=== PATIENT | male | born 1975 | race Caucasian/White ===

== ENCOUNTER → 2024-03-01 12:35 | Outpatient (REF) | payer BC, SELFPAY | LOC: HWRAD 12:35 | PROVIDERS: ATTENDING PHYSICIAN Family Medicine | DX: D18.03 Hemangioma of intra-abdominal structures (principal) | CPT/HCPCS: 76700 ==

== ENCOUNTER → 2024-04-01 13:47 | Outpatient (REF) | payer BC, SELFPAY ==
[2024-04-01 08:40] LABS: % Basophils 0.3 % (0-2); % Eosinophils 1.8 % (0-6); % Neutrophils 69.9 % (42.2-75.2); Absolute Eosinophils 0.1 10^3/uL (0-0.7); Absolute Lymphocytes 0.8 10^3/uL (1.2-3.4); Absolute Monocytes 0.3 10^3/uL (0.1-0.6); Absolute Neutrophils 2.8 10^3/uL (1.4-6.5); Hematocrit 46.2 % (39.0-52.0); Hemoglobin 15.1 g/dL (13.0-18.0); Mean Corp Hgb Conc. 32.7 g/dL (33.0-37.0); Mean Corpuscular Hgb 30.3 pg (27.0-31.0); Mean Corpuscular Volume 92.8 fL (80.0-94.0); Mean Platelet Volume 11.2 fL (7.4-10.4); Platelet Count 194 10^3/uL (130-400); Red Blood Cell Count 4.98 10^6/uL (4.70-6.10); Red Cell Dist. Width 12.7 % (11.5-14.5)
== END ==
LOC: OIDL 13:47
PROVIDERS: ATTENDING PHYSICIAN Nurse Practitioner Acute Care
DX: E83.110 Hereditary hemochromatosis (principal)
CPT/HCPCS: 85025